=== PATIENT | male | born 1960 | race Caucasian/White ===

== ENCOUNTER → 2020-08-06 | Outpatient (CLI) | payer SELFPAY ==
--- NOTE | 2020-08-26 11:12 | REP ---
RIGHT FOOT SERIES: CLINICAL: Trauma, pain. TECHNIQUE: AP, lateral, bilateral oblique views of the right foot. FINDINGS: Age related changes are appreciated. No acute fracture or dislocation. No subcutaneous emphysema or foreign body. IMPRESSION: Age related changes. No acute fracture or dislocation. MTDD
== END ==
LOC: M WUC 12:14
PROVIDERS: ATTEND Physician Assistant
DX: M79.674 Pain in right toe(s) (principal)

== ENCOUNTER → 2021-04-22 | Outpatient (CLI) | payer SELFPAY ==
--- NOTE | 2021-04-22 09:30 | REP ---
INDICATION: OSTEOARTHRITIS COMPARISON: None. TECHNIQUE: AP, lateral, sunrise views of the right and left knee. FINDINGS: Left knee demonstrates mild increased sclerosis along the medial tibial plateau with subtle joint space narrowing. Lateral and sunrise views demonstrate sclerotic heterogeneity along the anterior margin of the patella with quadriceps tendinous calcification. No acute fracture or dislocation. No obvious effusion. Right knee demonstrates cortical irregularity and subtle spurring along the femoral condyles and lateral tibial plateau along with increased sclerosis along the medial tibial plateau and mild joint space narrowing. Lateral and sunrise views demonstrate osteophytosis primarily along the inferior and lateral contours of the patella with increased sclerotic changes and decreased patellofemoral joint space. There is sclerotic heterogeneity along the anterior margin of the patella with quadriceps tendon calcification. No acute fracture or dislocation. No obvious effusion. IMPRESSION: [id number] osteoarthritic degenerative changes (right greater than left). <Electronically signed by Talib Starr > 04/22/21 0927
== END ==
LOC: M WUC 08:42
PROVIDERS: ATTEND Internal Medicine
DX: M17.0 Bilateral primary osteoarthritis of knee (principal)

== ENCOUNTER → 2022-05-22 | Outpatient (CLI) | payer SELFPAY | LOC: M WUC 14:49 | DX: M17.0 Bilateral primary osteoarthritis of knee (principal) ==